=== PATIENT | male | born 1990 | race Caucasian/White ===

== ENCOUNTER 2023-05-05 13:55 | Emergency (ER) | payer BC, OTHER ==
[2023-05-05] MEDS: Diphtheria,Pertussis(Acell),Tetanus Vaccine 0.5 ML Syringe IM ONE (14:33)
[2023-05-05] MEDS: Lidocaine 1% 10 ML MDV INJECT ONE (14:34)
== END 2023-05-05 14:36 | disposition home or self-care (01) ==
LOC: VM.ED 13:55
DX: S01.01XA Laceration without foreign body of scalp, initial encounter (principal); Z23 Encounter for immunization; W22.8XXA Striking against or struck by other objects, initial encounter
CPT/HCPCS: 12002; 90471; 90715; 99282-25; J3490